=== PATIENT | female | born 1980 | race Hispanic/Latino ===

== ENCOUNTER 2021-04-05 18:38 | Emergency (ER) | payer SELFPAY ==
[~2021-04-05] VITALS: Ht 157.5 cm; Wt 81.6 kg
[2021-04-05] MEDS ORDERED: KETOROLAC 30MG VIAL (30MG/ML) IV ONE (19:30)
[2021-04-05] MEDS ORDERED: PROMETHAZINE HCL 25 MG/ML 1ML AMPULE IM ONE (19:30)
[2021-04-05] MEDS ORDERED: 0.9%NACL 1000ML 1,000 ML IV ONE (19:30)
[2021-04-05] MEDS ORDERED: CYCLOBENZAPRINE HCL 10 MG TABLET PO ONE (19:30)
[2021-04-05 19:49] VITALS: BP 159/77
[2021-04-05 20:01] LABS: BASOPHILS % (AUTO) 0.2 % (0.0-5.0); EOSINOPHILS % (AUTO) 0.3 % (0.0-8.0); HEMATOCRIT 37.2 % (36-48); LYMPHOCYTES % (AUTO) 8.6 % (21.0-51.0); MEAN CORPUSCULAR HEMOGLOBIN 27.6 pg (27.0-33.0); MEAN CORPUSCULAR HGB CONC 33.3 g/dL (32.0-36.0); MEAN CORPUSCULAR VOLUME 82.7 fL (79-99); MONOCYTES % (AUTO) 4.3 % (3.0-13.0); NEUTROPHILS % (AUTO) 86.3 % (40.0-77.0); PLATELET COUNT (AUTO) 285 K/uL (130-400); RED CELL DISTRIBUTION WIDTH 12.6 % (11.0-15.5); WHITE BLOOD COUNT (AUTO) 11.9 K/uL (4.8-10.8)
[2021-04-05 20:06] LABS: APPEARANCE,URINE Clear (CLEAR); BILIRUBIN,URINE Negative (NEGATIVE); COLOR,URINE Yellow (YELLOW); GLUCOSE, URINE (UA) Negative (NEGATIVE); KETONES,URINE Trace mg/dL (NEGATIVE); LEUKOCYTE ESTERASE ,URINE Negative (NEGATIVE); NITRATE,URINE Negative (NEGATIVE); OCCULT BLOOD,URINE Moderate (NEGATIVE); PROTEIN,URINE POS 2+ mg/dL (NEGATIVE)
[2021-04-05 20:12] LABS: CREATININE 0.8 mg/dL (0.5-1.5); HCG,QUAL RESULT NEGATIVE (NEGATIVE); POTASSIUM 3.6 mmol/L (3.5-5.1)
[2021-04-05 20:16] LABS: BACTERIA,URINE Rare /HPF (None Seen); SQUAMOUS EPITHELIAL CELL,UR Rare /HPF (0-2); WBC,URINE 0-1 /HPF (0-1)
[2021-04-05 20:23] LABS: ALBUMIN 3.8 g/dL (3.5-5.0); BILIRUBIN,TOTAL 0.3 mg/dL (0.2-1.0); TOTAL PROTEIN, SERUM 8.2 g/dL (6.0-8.3)
[2021-04-05] MEDS ORDERED: NAPR-1180 PO (21:20)
[2021-04-05] MEDS ORDERED: RIZA10TA23 PO (21:20)
[2021-04-05] MEDS ORDERED: CYCL10TA16 PO (21:20)
== END 2021-04-05 22:05 | disposition home or self-care (01) ==
LOC: EDH 18:38
DX: G43.909 Migraine, unspecified, not intractable, without status migrainosus (principal); R11.2 Nausea with vomiting, unspecified; Z20.822 Contact with and (suspected) exposure to COVID-19; E66.9 Obesity, unspecified; Z79.1 Long term (current) use of non-steroidal anti-inflammatories (NSAID); Z68.32 Body mass index [BMI] 32.0-32.9, adult
CPT/HCPCS: 36415; 70450; 80053; 81001; 81025; 85025; 87635; 87804 ×2; 96361; 96372; 96374; 99285; C9803; J1885; J2550; J7030

== ENCOUNTER 2024-06-15 15:23 | Emergency (ER) | payer SELFPAY ==
[~2024-06-15] VITALS: Ht 157.5 cm; Wt 79.4 kg
[~2024-06-15 15:23] MED LIST: CYCL10TA16 PO; NAPR-1180 PO; RIZA-7 PO
--- NOTE | 2024-06-15 15:32 | ERN ---
ED Note History of Present Illness Stated Complaint: MIGRAINE, VOMITTING Time Seen by MD: 15:24 Dictation: PATIENT IS A 44-YEAR-OLD FEMALE HERE WITH COMPLAINTS OF A MIGRAINE HEADACHE THAT STARTED THIS MORNING. SHE STATES INITIALLY THIS STARTED OUT WITH A GENERALIZED HEADACHE AND THEN HAS MIGRATED TO HER LEFT TEMPOROPARIETAL AREA. SAID SHE HAS HAD NAUSEA VOMITING X2. SHE STATES SHE WAS GIVEN FIORICET AND TRIED TO TAKE A CAPSULE THIS MORNING ALONG WITH HER AMITRIPTYLINE HOWEVER SHE THROUGH THE FIORICET UP. SHE SAID NORMALLY THESE WE WILL TAKE CARE OF HER HEADACHE. SHE IS ALERT AND ORIENTED X4 SPEECH IS CLEAR GAIT IS STEADY TO TRIAGE. NIH IS 0. Allergies: Coded Allergies: No Known Allergies (Unverified Allergy, Unknown, 04/05/21) Home Meds Active Scripts Ondansetron (Ondansetron Odt) 4 Mg Tab.rapdis, 4 MG PO Q6HPRN PRN for nausea, #16 TAB 0 Refills Prov:CORY URIBE DOLPHIN RESEARCHER 06/15/24 Rizatriptan Benzoate (Maxalt Automatic Pilot Mechanic) 10 Mg Tab.rapdis, 10 MG PO as directed, #15 TAB Prov:FARHAN BROWER PA 04/05/21 Cyclobenzaprine HCl (Flexeril) 10 Mg Tab, 10 MG PO BID, #40 TAB Prov:FARHAN BROWER 04/05/21 Naproxen (Naprosyn) 500 Mg Tablet, 500 MG PO BIDPC, #60 TAB Prov:FARHAN BROWER 04/05/21 Past Medical History Past Medical History: No Pertinent History Additional Past Medical Hx: Obesity Surgical History: History: Not Applicable RN Note Reviewed/Agreed w/PFSH: Yes Review of System Dictation CONSTITUTIONAL: NEGATIVE EXCEPT FOR HPI HEAD/FACE: NEGATIVE EXCEPT FOR HPI EENT: NEGATIVE EXCEPT FOR HPI RESPIRATORY: NEGATIVE EXCEPT FOR HPI GASTROINTESTINAL/ABDOMINAL: NEGATIVE EXCEPT FOR HPI NAUSEA VOMITING GENITOURINARY: NEGATIVE EXCEPT FOR HPI MUSCULOSKELETAL: NEGATIVE EXCEPT FOR HPI INTEGUMENTARY: NEGATIVE EXCEPT FOR HPI NEUROLOGICAL/PSYCH: NEGATIVE EXCEPT FOR HPI HEADACHE HEMATOLOGIC/LYMPHATIC: NEGATIVE EXCEPT FOR HPI ALL SYSTEMS NEGATIVE, EXCEPT NOTED ABOVE. 13 POINT REVIEW OF SYSTEMS ASSESSED AND ALL NEGATIVE EXCEPT FOR ABOVE. Initial Vital Sign VS Vital Signs Date Time Temp Pulse Resp B/P (MAP) Pulse Ox O2 Delivery O2 Flow Rate FiO2 06/15/24 15:59 97.9 74 18 146/94 97 Room Air Physical Exam Dictation VITAL SIGNS REVIEWED GENERAL APPEARANCE: ALERT, ORIENTED X 3, MY ACUTE DISTRESS, WELL DEVELOPED, NOURISHED. HEAD AND FACE: NON-TRAUMATIC. EYES: PERRL, PINK CONJUNCTIVAS, EYELID NO TRAUMA, ANTERIOR CHAMBER WITH ARCUS SENILIS. EARS: PINNAS INTACT AND NO SIGNS OF TRAUMA OR ERYTHEMA EAR CANALS CLEAR AND NO DISCHARGE TM NO ERYTHEMA NOSE: NO DISCHARGE, NO BLEEDING. OROPHARYNX: MOUTH NORMAL, TONGUE PINK, PHARYNX CLEAR,NO ERYTHEMA, TONSILS NO EXUDATES, NO ABSCESSES NOTED, MUCOUS MEMBRANE MOIST NECK: SUPPLE, NON-TENDER, NO THYROMEGALY, NO MASSES, NO JVD, NO BRUITS BREAST:DEFERRED CHEST:NO TENDERNESS, NO CREPITUS, NO PARADOXICAL MOVEMENT, NO RETRACTIONS LUNGS:CLEAR, WELL-VENTILATED, SYMMETRIC, NO RALES, NO WHEEZING, NO RHONCHI, NO STRIDOR, GOOD BREATH SOUNDS BILATERALLY HEART: REGULAR RATE, REGULAR RHYTHM, NO MURMUR, NO GALLOPS VASCULAR: NO PERIPHERAL EDEMA, ABDOMEN: SOFT, POSITIVE BOWEL SOUNDS, NONDISTENDED, NO GUARDING, NONTENDER, NO REBOUND, NO MASSES NO HEPATOMEGALY, NO SPLENOMEGALY, NO JIMENEZ'S SIGN, NO HERNIAS. RECTAL: DEFERRED GENITAL: DEFERRED NEUROLOGICAL: NORMAL SPEECH, MOTOR FUNCTION INTACT, SENSORY FUNCTION INTACT NIH IS 0 MUSCULOSKELETAL: NECK NONTENDER, FULL RANGE OF MOTION, BACK NONTENDER, FULL RANGE OF MOTION, EXTREMITIES: NONTENDER, FULL RANGE OF MOTION SKIN: COLOR PINK, DRY, NO TURGOR, NO RASH, NO LACERATIONS, NO ABRASIONS, NO CONTUSIONS. LYMPHATIC: DEFERRED Results (Laboratory/Radiology) Labs Reviewed?: Yes ED Course ED Course Orders Procedure Category Date Status Time Ondansetron Odt 4mg PHA 06/15/24 Complete Tab (Zofran 4mg Odt) 15:30 Ketorolac 60mg/2ml PHA 06/15/24 Complete (Toradol 60mg/2ml) 15:30 Acetaminophen 500mg PHA 06/15/24 Complete Tab (Tylenol 500mg T 16:00 Current Medications Medications (Trade) Dose Ordered Sig/Rudy Route PRN Reason Start Time Stop Time Status Last Admin Dose Admin Acetaminophen (TYLenol 500MG TAB) 1,000 mg ONCE ONCE PO 06/15/24 16:00 06/15/24 16:01 DC 06/15/24 16:10 Ketorolac Tromethamine (toRADol 60MG/ 2ML) 60 mg ONCE ONCE IM 06/15/24 15:30 06/15/24 15:34 DC 06/15/24 16:10 Ondansetron HCl (zoFRAN 4MG ODT) 4 mg ONCE ONCE SL 06/15/24 15:30 06/15/24 15:34 DC 06/15/24 16:09 Vital Signs Date Time Temp Pulse Resp B/P (MAP) Pulse Ox O2 Delivery O2 Flow Rate FiO2 06/15/24 15:59 97.9 74 18 146/94 97 Room Air 1650/PATIENT STATES SHE FEELS BETTER AFTER KETOROLAC/ACETAMINOPHEN AND ZOFRAN. NO NAUSEA VOMITING AT THIS TIME. DISCHARGED HOME TO CONTINUE FIORICET TO EVERY 4 HOURS MAXIMUM SIX TABLETS IN 24, ZOFRAN FOR NAUSEA AND SEE HER PRIMARY CARE DOCTOR Medical Decision Making MDM MEDICAL DECISION-MAKING BASED ON TREATMENT FOR TENSION HEADACHE AND VOMITING. PATIENT FEELING BETTER AND NEUROLOGICALLY INTACT AFTER TREATMENT. PATIENT HAS FIORICET SHE WAS TAKEN ONE EVERY 4 HOURS DIRECTIONS WERE CHANGE TO TAKE TWO EVERY 4 HOURS ON SET OF HEADACHE, MAXIMUM SIX CAPSULES 24 HOURS ZOFRAN FOR VOMITING SEE HER PRIMARY CARE DOCTOR DX & DISP Disposition: Discharge Departure Impression: Primary Impression: Acute tension headache Additional Impression: Nausea & vomiting Condition: Stable Scripts Ondansetron (Ondansetron Odt) 4 Mg Tab.rapdis 4 MG PO Q6HPRN PRN for nausea, #16 TAB 0 Refills Prov: CORY URIBE DOLPHIN RESEARCHER 06/15/24 Additional Instructions: FOLLOW-UP WITH PRIMARY CARE PROVIDER IN 1 TO 2 DAYS. TAKE MEDICATIONS DIRECTED HERE IN THE EMERGENCY ROOM. OKAY TO CONTINUE HOME MEDICATIONS UNLESS OTHERWISE DISCUSSED DURING YOUR VISIT IN THE EMERGENCY ROOM TODAY. RETURN TO YOUR NEAREST EMERGENCY ROOM IF SYMPTOMS WORSEN OR IF THERE IS NO IMPROVEMENT. C ALL 911 IF YOU NEED IMMEDIATE ASSISTANCE. TAKE TYLENOL OR MOTRIN [id number] NEEDED AND IF NO CONTRAINDICATIONS ARE PRESENT. INCREASE ORAL HYDRATION. A WOUND CULTURE OR URINE CULTURE WAS ORDERED HERE IN THE EMERGENCY ROOM DEPARTMENT PLEASE FOLLOW-UP WITH PRIMARY CARE PROVIDER AND ADVISE THEM TO GET REPEAT PORTS FROM OUR FACILITY. IF YOU HAD ANY MONTEZ WRAP/SPLINTS THAT WERE APPLIED HERE, PLEASE DO NOT REMOVE THEM UNTIL YOU SEE YOUR PRIMARY CARE OR SPECIALTY. C TAKE FIORICET TWO CAPSULES EVERY 4 HOURS NEEDED FOR HEADACHE, MAXIMUM SIX TABLETS IN 24 HOURS. TAKE ZOFRAN NEEDED FOR NAUSEA VOMITING. FOLLOW UP WITH YOUR PRIMARY CARE DOCTOR AT [facility] FOR REFERRAL TO NEUROLOGIST. Referrals: SELF,REFERRAL (PCP) Time of Disposition: 16:52 I have reviewed the case, and I agree with, Diagnosis and Plan CORY URIBE NP Jun 15, 2024 15:32 SALLY VALLE DO Jun 15, 2024 17:05
[2024-06-15] MEDS: ondanSETRON ODT 4MG TAB SL ONE (16:09)
[2024-06-15] MEDS: ketOROlac 60 MG VIAL (30MG/ML) IM ONE (16:10)
[2024-06-15] MEDS: acetaMINOPHEN 500 MG TABLET PO ONE (16:10)
[2024-06-15] MEDS ORDERED: ONDA-243 PO (16:53)
[2024-06-15 17:09] VITALS: BP 135/83; PULSE 74; RESP 18; TEMP 97.9; O2SAT 97
== END 2024-06-15 17:14 | disposition home or self-care (01) ==
LOC: EDH 15:23
DX: G44.209 Tension-type headache, unspecified, not intractable (principal); G43.909 Migraine, unspecified, not intractable, without status migrainosus; E66.9 Obesity, unspecified; R11.2 Nausea with vomiting, unspecified; Z79.899 Other long term (current) drug therapy; Z98.890 Other specified postprocedural states
CPT/HCPCS: 99283; 96372; J1885